=== PATIENT | male | born 1965 | race Caucasian/White ===

== ENCOUNTER 2018-08-17 04:59 | Emergency (ER) | payer OTHER ==
[~2018-08-17] VITALS: Ht 185.4 cm; Wt 124.3 kg
[~2018-08-17 04:59] MED LIST: AMOXICILLIN 50500 M1 PO; CODEINE-GUAIFE473 M1 PO; COMBIVENT INH; DOXYCYCLINE 10100 MG PO; NAPROSYN500 MG PO; NOHOMEMEDICATIONS; NORCO 5-325 TA1 EAC1 PO; NORCO 5-325 TA1 EACH PO; POLYMYXIN B/TMP10 ML OP; PREDNISONE 20 M20 M1 PO; VENTOLIN HFA 1818 GM INH; VICOPROFEN 2001 EACH PO; ZPAK PO
[2018-08-17 05:58] LABS: INFLUENZA A ANTIGEN None Detected (None Detect); INFLUENZA B ANTIGEN None Detected (None Detect)
[2018-08-17] MEDS ORDERED: HYDROXYZINE HCL25 M1 PO (06:17)
[2018-08-17] MEDS ORDERED: PROAIR HFA8.5 GM INH (06:17)
[2018-08-17] MEDS ORDERED: ZOFRAN ODT4 MG PO (06:17)
[2018-08-17] MEDS ORDERED: PREDNISONE50 MG PO (06:17)
[2018-08-17 06:28] VITALS: BP 131/74
== END 2018-08-17 06:28 | disposition home or self-care (01) ==
LOC: M.ERS 04:59
PROVIDERS: Emergency Medicine
DX: J40 Bronchitis, not specified as acute or chronic (principal); T39.1X5A Adverse effect of 4-Aminophenol derivatives, initial encounter; Z87.891 Personal history of nicotine dependence; Z90.49 Acquired absence of other specified parts of digestive tract; Y92.89 Other specified places as the place of occurrence of the external cause

== ENCOUNTER 2020-03-18 10:29 | Emergency (ER) | payer OTHER ==
[~2020-03-18] VITALS: Ht 185.4 cm; Wt 127.0 kg
[~2020-03-18 10:29] MED LIST changes: +HYDROXYZINE HCL25 M1 PO; +PREDNISONE50 MG PO; +PROAIR HFA8.5 GM INH; +ZOFRAN ODT4 MG PO
[2020-03-18 11:23] LABS: ABSOLUTE BASOPHILS 0.1 thou/uL (0.0-0.2); ABSOLUTE EOSINOPHILS 0.2 thou/uL (0.0-0.7); ABSOLUTE LYMPHOCYTES 1.7 thou/uL (0.8-5.3); BASOPHILS 0.5 %; EOSINOPHILS 1.7 %; HEMATOCRIT 47.3 % (42.0-52.0); LYMPHOCYTES 13.8 %; MCH 31.3 pg (26.0-34.0); MCHC 33.9 g/dL (28.0-37.0); MCV 92.4 fL (80.0-100.0); MONOCYTES 8.2 %; MPV 8.7 fl. (7.2-11.1); NUCLEATED RBCS 0 /100WBC; PLATELET COUNT* 227 thou/uL (150-400); POLYS 75.8 %; RBC 5.12 mil/uL (4.50-6.00); RDW-CV 14.3 % (10.5-14.5); WBC 11.9 thou/uL (4.0-11.0)
[2020-03-18 11:27] LABS: URINE BILIRUBIN NEGATIVE (Negative); URINE BLOOD 2+ (Negative); URINE CLARITY CLEAR; URINE COLOR YELLOW; URINE GLUCOSE-RANDOM NEGATIVE (Negative); URINE KETONES NEGATIVE (Negative); URINE LEUKOCYTES-REFLEX NEGATIVE (Negative); URINE NITRITE-REFLEX NEGATIVE (Negative); URINE PROTEIN NEGATIVE (Negative); URINE SPECIFIC GRAVITY >= 1.030 (1.005-1.030); URINE UROBILINOGEN 0.2 E.U./dl (0.2-1.0)
[2020-03-18 11:32] LABS: CALCIUM 9.5 mg/dL (8.5-10.1); CREATININE 1.5 mg/dL (0.6-1.3); POTASSIUM 4.6 mmol/L (3.5-5.1)
[2020-03-18 11:35] LABS: SQUAMOUS 0-3 Few /LPF (0-3); URINE RBC 3-10 Few /HPF (0-2); URINE WBC-REFLEX 0-5 Rare /HPF (0-5)
[2020-03-18 11:36] LABS: CRYSTALS None Seen /LPF (None Seen); HYALINE CASTS 4-10 Moderate /LPF (None Seen); MUCUS 4-6 Moderate strn/LPF (None Seen)
[2020-03-18 11:37] LABS: ALBUMIN 3.8 g/dL (3.4-5.0); TOTAL BILIRUBIN 0.5 mg/dL (<0.1-1.0); TOTAL PROTEIN 7.8 g/dL (6.4-8.2)
[2020-03-18] MEDS ORDERED: HYDROCODON-ACE1 EAC7 PO (15:14)
[2020-03-18] MEDS ORDERED: PROAIR HFA8.5 GM INH (15:14)
[2020-03-18] MEDS ORDERED: ZOFRAN ODT4 MG PO (15:14)
[2020-03-18] MEDS ORDERED: MEDROLDOSEPACK PO (15:14)
[2020-03-18 16:20] VITALS: BP 141/88
== END 2020-03-18 16:21 | disposition home or self-care (01) ==
LOC: M.ERS 10:29
PROVIDERS: Personal Emergency Response Attendant
DX: N20.1 Calculus of ureter (principal); N23 Unspecified renal colic; R06.2 Wheezing; Z20.828 Contact with and (suspected) exposure to other viral communicable diseases; Z90.49 Acquired absence of other specified parts of digestive tract; Z87.891 Personal history of nicotine dependence